=== PATIENT | male | born 1970 | race Two or more races ===

== ENCOUNTER → 2017-02-18 08:47 | Outpatient (CLI) | payer MEDICAID | END | disposition home or self-care (01) | LOC: D.CT 08:47 | DX: N20.0 Calculus of kidney (principal); R31.9 Hematuria, unspecified ==

== ENCOUNTER → 2017-05-19 11:53 | Outpatient (CLI) | payer MEDICAID | LOC: D.LABREF 11:53 | DX: R31.9 Hematuria, unspecified (principal) ==

== ENCOUNTER 2017-06-23 05:35 | Day surgery (SDC) | payer MEDICAID ==
[2017-06-22 09:59] LABS: BASOPHILS 0.3 % (0-2); EOSINOPHILS 3.6 % (0-7); HEMATOCRIT 41.1 % (42.0-54.0); HEMOGLOBIN 14.2 g/dL (13.5-17.5); LYMPHOCYTES 32.4 % (15-50); MCH 32.6 pg (26.0-34.0); MCHC 34.5 g/dL (31.0-37.0); MCV 94.5 fL (80.0-100.0); MEAN PLATELET VOLUME 10.6 fL (7.4-10.4); MONOCYTES 6.5 % (2-11); NEUTROPHILS 57.2 % (40-80); PLATELET COUNT 212 10x3/uL (130-400); RBC 4.35 10x6/uL (4.20-6.10); RDW 13.4 % (11.5-14.5); WBC 7.7 10x3/uL (4.8-10.8)
[~2017-06-23] VITALS: Ht 165.1 cm; Wt 76.7 kg
[~2017-06-23 05:35] MED LIST: PROVENTIL HFA6.7 GM INH; SINGULAIR10 MG PO
[2017-06-23 08:18] VITALS: BP 124/79; Ht 165.1 cm; Wt 76.7 kg
--- NOTE | 2017-06-24 11:24 | OP ---
PATIENT NAME: JACQUELYN MONTANEZ MEDICAL RECORD: [id number] :74 LOCATION:D[facility]OPS ADMISSION DATE: SURGEON: JUSTINE CHAO MD DATE OF OPERATION: 06/23/2017 SURGEON: Justine Chao MD. ANESTHESIA: MAC by Manisha Moe CRNA. PREOPERATIVE DIAGNOSES: Microhematuria, interstitial cystitis. PREOPERATIVE DIAGNOSES: Microhematuria, interstitial cystitis. FINDINGS: Obstructive bladder neck with vascular prostate. Single ureteral orifices bilaterally. No bladder tumors. Diffuse bladder inflammation noted. PROCEDURES: Cystoscopy and intravesical Rimso 50% times 50 mL installation. SPECIMENS: None. BLOOD LOSS: None. CLINICAL HISTORY: This is a 46-year-old male who has a history of microhematuria. Upper tract imaging has been negative. He comes now to have cystoscopy and placement of intravesical Rimso if needed. He has ongoing symptoms of suprapubic pain and urinary frequency. Cultures have been negative. 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 DESCRIPTION OF PROCEDURE: The patient was given IV sedation. He was then placed in the dorsal lithotomy position and prepped and draped. A 17-Lithuanian cystoscope with 30-degree lens was used for visualization. Penile urethra was normal. Prostatic urethra shows some bladder neck obstruction. Prostate is vascular. Going in to the bladder, there are single ureteral orifices on each side but no bladder tumors were seen. The bladder is diffusely inflamed and vascular. We emptied the bladder through the cystoscope sheath. The sheath was then removed. A 12-Lithuanian red rubber catheter was then inserted into the bladder. Through the catheter, 50 mL of Rimso solution was injected with a Rj syringe. The catheter was then removed, leaving the solution in the bladder. The patient will hold the solution for at least 15 minutes and then void it out. He will be seen in the office next week to have a second treatment of Rimso. TRANSINT:[id number] Voice Confirmation ID: [id number] DOCUMENT ID: [id number] JUSTINE CHAO MD at 1124 CC: [id number] DICTATION DATE: 06/23/17 1503 [facility]AFER MOUNTER: 06/23/17 2310 [facility] 06/23/17 [place] [address]
== END 2017-06-23 17:45 | disposition home or self-care (01) ==
LOC: D.OPS 05:35 → D.PAN 10:15 → D.OPS 11:10 → D.PAN 11:55 → D.OPS 17:45
PROVIDERS: Anesthesiology
DX: R31.29 Other microscopic hematuria (principal); N30.10 Interstitial cystitis (chronic) without hematuria; F17.200 Nicotine dependence, unspecified, uncomplicated; J45.909 Unspecified asthma, uncomplicated; I10 Essential (primary) hypertension; K21.9 Gastro-esophageal reflux disease without esophagitis; Z01.812 Encounter for preprocedural laboratory examination

== ENCOUNTER 2018-07-25 10:05 | Emergency (ER) | payer SELFPAY ==
[~2018-07-25] VITALS: Ht 165.1 cm; Wt 84.5 kg
[2018-07-25 10:08] VITALS: Ht 165.1 cm; Wt 84.5 kg
[2018-07-25 10:34] VITALS: BP 124/88
== END 2018-07-25 10:35 | disposition home or self-care (01) ==
LOC: D.ER 10:05
DX: S90.512D Abrasion, left ankle, subsequent encounter (principal); X58.XXXD Exposure to other specified factors, subsequent encounter